=== PATIENT | male | born 1945 | race Caucasian/White ===

== ENCOUNTER 2016-11-27 06:49 | Emergency (ER) | payer MEDICARE, OTHER ==
[2016-11-27] MEDS ORDERED: Ketorolac INJ* 30 MG/ML 1 ML VIAL IV PUSH ONE (07:50)
--- NOTE | 2016-11-27 08:17 | RAD ---
CLINICAL HISTORY: Left flank pain COMPARISON: None TECHNIQUE: Multiple contiguous axial CT scans were obtained of the abdomen and pelvis, without intravenous contrast enhancement. Coronal and sagittal multiplanar reformations are submitted for review. Oral contrast was not administered. FINDINGS: The study is limited by the lack of intravenous contrast. This limits evaluation of the solid organs and vasculature. LUNG BASES: The lung bases are clear. LIVER: The liver is diffusely low in attenuation compared to the spleen. There are no focal hepatic parenchymal masses. The liver is enlarged measuring 20 cm in long axis. BILE DUCTS: There is no intrahepatic or extrahepatic biliary dilatation. GALLBLADDER: Multiple gallstones are noted. There is no pericholecystic inflammatory change. PANCREAS: The pancreas is normal, without mass or ductal dilatation. SPLEEN: Normal in size and appearance. UPPER GI TRACT: Evaluation of the gastrointestinal tract is limited by incomplete gastric distention. The upper GI tract is unremarkable. SMALL BOWEL AND MESENTERY: The small bowel is normal in contour, course, and caliber. There is no obstruction or dilatation. COLON: There are multiple diverticula of the sigmoid colon. There is no pericolonic inflammatory change. There is a tubular, vermiform, hollow viscus that is blind ending, and originates from the cecum, consistent with a normal appendix. There is no periappendiceal inflammatory change. This is best seen on axial images 116 through 121 ADRENALS: Normal bilaterally. KIDNEYS: There is a simple cyst of the left kidney measuring 6 cm. There is no hydronephrosis or nephrolithiasis BLADDER: The bladder is smooth in contour. PELVIC ORGANS: The prostate is mildly enlarged. The seminal vesicles are symmetric. AORTA: The aorta is normal. IVC: Unremarkable LYMPH NODES: There is no lymphadenopathy by size criteria. ABDOMINAL WALL: There is no evidence for abdominal wall hernia. There is inflammatory change in the subcutaneous fat superficial to the deep fascia along the right lower abdomen BONES AND SOFT TISSUES: Degenerative changes are noted along the spine OTHER: None IMPRESSION: 1. NO HYDRONEPHROSIS OR NEPHROLITHIASIS. 2. HEPATOMEGALY WITH FATTY INFILTRATION OF LIVER. 3. THERE IS INFLAMMATORY CHANGE OF THE SUBCUTANEOUS FAT ALONG THE RIGHT LOWER ABDOMEN. THE DIFFERENTIAL INCLUDES HEMATOMA VERSUS CELLULITIS. RECOMMEND CORRELATION WITH DIRECT VISUALIZATION
[2016-11-27 08:44] LABS: Hematocrit 39 % (42-52); Hemoglobin 13.2 g/dl (14.0-18.0); Mean Corpuscular HGB Conc 34 g/dl (31-36); Mean Corpuscular Hemoglobin 28 pg (27-31); Mean Corpuscular Volume 83 fL (80-94); Mean Platelet Volume 7 um3 (7.4-10.4); Red Blood Count 4.66 10^6/ul (4.0-5.4); Red Cell Distribution Width 13 % (10.5-15); White Blood Count 8.9 10^3/ul (3.5-10.8)
[2016-11-27 08:56] LABS: Troponin I 0.01 ng/mL (<0.04)
[2016-11-27 08:58] LABS: EGFR Non-African American 113.7 (>60)
[2016-11-27 09:47] LABS: BUN/Creatinine Ratio 17.5 (8-20); Calcium 9.4 mg/dL (8.6-10.3); Potassium 3.6 mmol/L (3.5-5.0)
[2016-11-27 09:48] LABS: Albumin 4.3 g/dL (3.2-5.2); C Reactive Protein 5.05 mg/L (< 5.00); EGFR African American 123.3 (>60); Globulin 2.3 g/dL (2-4); Total Bilirubin 0.4 mg/dL (0.2-1.0); Total Protein 6.6 g/dL (6.4-8.9)
[2016-11-27 10:18] VITALS: BP 145/65
--- NOTE | 2016-11-27 18:02 | ED ---
Siddharth Lezama Billy, scribed for Wilfredo Wells MD on 11/27/16 at 0741 . Complex/Multi-Sys Presentation - HPI Summary HPI Summary: Patient is a 71 year-old male coming to [facility] for evaluation of left-sided rib pain for the last 2 weeks. 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 The pain is worse when twisting his torso and with certain movements. Denies fevers, chills, nausea, vomiting, diarrhea, or chest pain. Denies hematuria or dysuria. - History Of Current Complaint Chief Complaint: EDAbdPain Time Seen by Provider: 11/27/16 07:15 Hx Obtained From: Patient Onset/Duration: Gradual Onset, Lasting Weeks Timing: Constant Severity Currently: Moderate Severity Initially: Moderate Location: Pain At: - left ribs Aggravating Factor(s): twisting, certain body movements Associated Signs And Symptoms: Negative: SOB, Chest Pain, Nausea, Vomiting, Diarrhea, Fever - Allergies/Home Medications Allergies/Adverse Reactions: Allergies Allergy/AdvReac Type Severity Reaction Status Date / Time Ramipril Allergy Coughing Verified 03/27/16 08:37 PMH/Surg Hx/FS Hx/Imm Hx Endocrine/Hematology History: Reports: Hx Diabetes - TYPE II- ORAL AND INSULIN MEDS, Hx Anemia - IRON LEVEL LOW CHRONIC Denies: Hx Thyroid Disease Cardiovascular History: Reports: Hx Hypertension - ON MEDICATION FOR Denies: Hx Pacemaker/ICD Respiratory History: Denies: Hx Asthma, Hx Chronic Obstructive Pulmonary Disease (COPD), Other Respiratory Problems/Disorders GI History: Denies: Hx Ulcer, Other GI Disorders Musculoskeletal History: Reports: Hx Arthritis - HIPS, IN LEFT CENTER FINGER Sensory History: Reports: Hx Cataracts - JUST STARTING TO GET, Hx Contacts or Glasses - READING Denies: Hx Hearing Aid Opthamlomology History: Reports: Hx Cataracts - JUST STARTING TO GET, Hx Contacts or Glasses - READING Psychiatric History: Denies: Hx Panic Disorder - Surgical History Surgery Procedure, Year, and Place: LT Knee SURGERY-[facility]; right and left shoulder surgery-[facility]; hernia repair-[facility]; RIGHT CTR,(carpal tunnel release) , [facility]; LEFT CARPEL TUNNEL RELEASE, [facility] Hx Anesthesia Reactions: No Infectious Disease History: No Infectious Disease History: Reports: Hx Shingles Denies: Hx Clostridium Difficile, Hx Hepatitis, Hx Human Immunodeficiency Virus (HIV), Hx of Known/Suspected MRSA, Hx Tuberculosis, Traveled Outside the [place] in Last 30 Days - Family History Family History: No family history of malignant hyperthermia or anesthesia reaction. - Social History Alcohol Use: Daily Alcohol Amount: 1 A DAY Substance Use Type: Reports: None Smoking Status (MU): Former Smoker Review of Systems Negative: Fever, Chills Negative: Chest Pain Negative: Shortness Of Breath Negative: Vomiting, Diarrhea, Nausea Negative: dysuria Musculoskeletal: Other - pain to the left trunk All Other Systems Reviewed And Are Negative: Yes Physical Exam - Summary Physical Exam Summary: VITAL SIGNS: Reviewed. GENERAL: Patient is a well-developed and nourished male who is lying comfortable in the stretcher. Patient is not in any acute respiratory distress. HEAD AND FACE: No signs of trauma. No ecchymosis, hematomas or skull depressions. No sinus tenderness. EYES: PERRLA, EOMI x 2, No injected conjunctiva, no nystagmus. EARS: Hearing grossly intact. Ear canals and tympanic membranes are within normal limits. MOUTH: Oropharynx within normal limits. NECK: Supple, trachea is midline, no adenopathy, no JVD, no carotid bruit, no c- spine tenderness, neck with full ROM. CHEST: Symmetric. There is positive tenderness to the left rib cage area and left flank. LUNGS: Clear to auscultation bilaterally. No wheezing or crackles. CVS: Regular rate and rhythm, S1 and S2 present, no murmurs or gallops appreciated. ABDOMEN: Soft, obese, non-tender. No signs of distention. No rebound no guarding , and no masses palpated. Bowel sounds are normal. EXTREMITIES: FROM in all major joints, no edema, no cyanosis or clubbing. NEURO: Alert and oriented x 3. No acute neurological deficits. Speech is normal and follows commands. SKIN: Dry and warm Triage Information Reviewed: Yes Vital Signs On Initial Exam: Initial Vitals Temp Pulse Resp BP Pulse Ox 97.8 F 61 18 150/79 97 11/27/16 06:59 11/27/16 06:59 11/27/16 06:59 11/27/16 06:59 11/27/16 06:59 Vital Signs Reviewed: Yes Diagnostics - Vital Signs Vital Signs Temp Pulse Resp BP Pulse Ox 11/27/16 06:59 97.8 F 61 18 150/79 97 - Laboratory Lab Results: Lab Results 11/27/16 11/27/16 11/27/16 Range/Units 08:20 08:20 08:20 WBC 8.9 (3.5-10.8) 10^3/ul RBC 4.66 (4.0-5.4) 10^6/ul Hgb 13.2 L (14.0-18.0) g/dl Hct 39 L (42-52) % MCV 83 (80-94) fL MCH 28 (27-31) pg MCHC 34 (31-36) g/dl RDW 13 (10.5-15) % Plt Count 304 (150-450) 10^3/ul MPV 7 L (7.4-10.4) um3 Neut % (Auto) 55.5 (38-83) % Lymph % (Auto) 33.1 (25-47) % [place] % (Auto) 8.1 (1-9) % Eos % (Auto) 2.9 (0-6) % Baso % (Auto) 0.4 (0-2) % Absolute Neuts (auto) 4.9 (1.5-7.7) 10^3/ul Absolute Lymphs (auto) 2.9 (1.0-4.8) 10^3/ul Absolute Monos (auto) 0.7 (0-0.8) 10^3/ul Absolute Eos (auto) 0.3 (0-0.6) 10^3/ul Absolute Basos (auto) 0 (0-0.2) 10^3/ul Absolute Nucleated RBC 0.01 10^3/ul Nucleated RBC % 0.1 Sodium 135 (133-145) mmol/L Potassium 3.6 (3.5-5.0) mmol/L Chloride 96 L (101-111) mmol/L Carbon Dioxide 31 (22-32) mmol/L Anion Gap 8 (2-11) mmol/L BUN 14 (6-24) mg/dL Creatinine 0.80 (0.67-1.17) mg/dL Est GFR ( Amer) 123.3 (>60) Est GFR (Non-Af Amer) 113.7 (>60) BUN/Creatinine Ratio 17.5 (8-20) Glucose 139 H (70-100) mg/dL Lactic Acid 1.7 (0.5-2.0) mmol/L Calcium 9.4 (8.6-10.3) mg/dL Total Bilirubin 0.40 (0.2-1.0) mg/dL AST 21 (13-39) U/L ALT 28 (7-52) U/L Alkaline Phosphatase 52 (34-104) U/L Troponin I 0.01 (<0.04) ng/mL C-Reactive Protein 5.05 H (< 5.00) mg/L Total Protein 6.6 (6.4-8.9) g/dL Albumin 4.3 (3.2-5.2) g/dL Globulin 2.3 (2-4) g/dL Albumin/Globulin Ratio 1.9 (1-3) Amylase 20 L (29-103) U/L Lipase 10 L (11.0-82.0) U/L Result Diagrams: 11/27/16 08:20 11/27/16 08:20 Lab Statement: Any lab studies that have been ordered have been reviewed, and results considered in the medical decision making process. - CT abd/pel w/o contrast CT Interpretation Completed By: Radiologist - 1. NO HYDRONEPHROSIS OR NEPHROLITHIASIS. 2. HEPATOMEGALY WITH FATTY INFILTRATION OF LIVER. 3. THERE IS INFLAMMATORY CHANGE OF THE SUBCUTANEOUS FAT ALONG THE RIGHT LOWER ABDOMEN.THE DIFFERENTIAL INCLUDES HEMATOMA VERSUS CELLULITIS. RECOMMEND CORRELATION WITH DIRECT VISUALIZATION - EKG 0826 EKG Interpretation: sinus bradycardia 53 bpm, no STEMI Re-Evaluation - Re-Evaluation First Eval Re-Evaluation Time: 10:05 Comment: Labs and imaging reviewed. Complex Multi-Symp Course/Dx Assessment/Plan: Patient is a 71 year-old male coming to [facility] for evaluation of left-sided rib pain for the last 2 weeks. 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 The pain is worse when twisting his torso and with certain movements. Denies fevers, chills, nausea, vomiting, diarrhea, or chest pain. Denies hematuria or dysuria. Test results WNL except for a slight anemia. Glucose of 139 and CRP of 5.05. I decided to order a CT of the abd/pel without contrast to rule-out kidney stone since he has some left flank pain and rib cage pain. The results show findings as read by the radiologist: 1. No hydronephrosis or nephrolithiasis. 2. Hepatomegaly with fatty infiltration of liver. 3. There is inflammatory change of the subcutaneous fat along the right lower abdomen. The differential includes hematoma versus cellulitis. Recommend correlation with direct visualization. The patient was given Toradol with improvement. He reports that the pain has resolved. I offered the patient a rib-cage x-ray, which he declined. He declined that he feels much better now. The patient is ambulating with no complaints and will therefore be discharged home to follow up with PCP. He was instructed to take ibuprofen for pain management. He understands and agrees. I discussed all the findings and test results with the patient. Patient was instructed to return to the emergency room immediately if any of the symptoms return or worsens. Plan of care was discussed with the patient and understands and agrees. All questions were answered at patient satisfaction. There were no further complaints or concerns. Lung exam before discharge: CTA B/L. Good air exchange. No wheezing or crackles heard. CVS: S1 and S2 present. No murmurs appreciated. Patient is alert and oriented x 3. Patient is hemodynamically stable. Patient will be discharged home with follow up PCP in the next 2-3 days - Diagnoses Differential Diagnoses/HQI/PQRI: Urinary Tract Infection, Other - kidney stones Provider Diagnoses: Left flank pain, left ribcage pain Discharge - Discharge Plan Condition: Stable Disposition: HOME Patient Education Materials: Flank Pain (ED), Musculoskeletal Pain (ED) Referrals: Jim Patten MD [Primary Care Provider] - Additional Instructions: TAKE IBUPROFEN NEEDED FOR PAIN MANAGEMENT. The documentation as recorded by the Siddharth lay Billy accurately reflects the service I personally performed and the decisions made by me, Wilfredo Wells MD.
== END 2016-11-27 10:18 | disposition home or self-care (01) ==
LOC: ED 06:49
DX: R07.89 Other chest pain (principal); R10.84 Generalized abdominal pain
CPT/HCPCS: 36415; 74176; 80053; 82150; 83605; 83690; 84484; 85025; 86140; 93005; 96374; 99283; J1885

== ENCOUNTER 2021-07-12 13:26 | Inpatient (IN) ==
[2021-07-12] MEDS ORDERED: NS 0.9% 1000 ml BAG 1,000 ML IV ONE (13:28)
[2021-07-12] MEDS ORDERED: Labetalol IV 5 MG/ML 20 ml VIAL ONE (13:35)
[2021-07-12] MEDS ORDERED: Alteplase (100 mg Vial) 100 mg VIAL IV ONE ×2 (13:39)
[2021-07-12] MEDS ORDERED: Alteplase (100 mg Vial) 100 mg VIAL ONE (13:40)
[2021-07-12] MEDS ORDERED: Iodixanol (CONTRAST) 320 MG/ML 100 ML SDV IV ONE (13:45)
[2021-07-12 13:46] LABS: ABS Basophils 0.1 10^3/ul (0-0.2); ABS Eosinophils 0.1 10^3/ul (0-0.6); ABS Lymphocytes 3.4 10^3/ul (1.0-4.8); ABS Monocytes 0.8 10^3/ul (0-0.8); ABS Neutrophils 6.1 10^3/ul (1.5-7.7); Hematocrit 42 % (42-52); Hemoglobin 14.1 g/dL (14.0-18.0); Lymphocyte % 32.5 %; Mean Corpuscular HGB Conc 34 g/dL (31-36); Mean Corpuscular Hemoglobin 29 pg (27-31); Mean Corpuscular Volume 86 fL (80-94); Mean Platelet Volume 6.8 fL (7.4-10.4); Platelet Count 294 10^3/uL (150-450); Red Blood Count 4.81 10^6 /uL (4.18-5.48); Red Cell Distribution Width 13 % (10-15); White Blood Count 10.5 10^3/uL (3.5-10.8)
[2021-07-12 13:56] LABS: Activated Partial Thrombo Time 27.8 seconds (26.0-38.0); INR 1.03 (0.86-1.15)
[2021-07-12 14:05] LABS: Albumin 4.5 g/dL (3.2-5.2); Albumin/Globulin Ratio 1.6 (1-3); Calcium 9.6 mg/dL (8.6-10.3); Globulin 2.8 g/dL (2-4); HDL Cholesterol 37.5 mg/dL; Potassium 3.2 mmol/L (3.5-5.0); Total Bilirubin 0.5 mg/dL (0.2-1.0); Total Protein 7.3 g/dL (6.4-8.9); eGFR CKD-EPI 96.5 (>60)
[2021-07-12] MEDS ORDERED: Potassium Chlor 20 meq TAB.ER PO ONE (14:25)
[2021-07-12] MEDS ORDERED: Dextrose 50% Syringe 50 ml 25 GM/50 ML SYRINGE IV PUSH PRN (16:42)
[2021-07-12] MEDS ORDERED: NS 0.9% 1000 ml BAG 1,000 ML IV SCH (19:30)
[2021-07-13] MEDS: NS 0.9% 1000 ml BAG 1,000 ML IV SCH ×2 (03:42→10:23)
[2021-07-13 05:33] LABS: Hematocrit 34 % (42-52); Hemoglobin 11.4 g/dL (14.0-18.0); Mean Corpuscular HGB Conc 34 g/dL (31-36); Mean Corpuscular Hemoglobin 29 pg (27-31); Mean Corpuscular Volume 87 fL (80-94); Mean Platelet Volume 6.9 fL (7.4-10.4); Platelet Count 240 10^3/uL (150-450); Red Blood Count 3.88 10^6 /uL (4.18-5.48); Red Cell Distribution Width 13 % (10-15); White Blood Count 8.1 10^3/uL (3.5-10.8)
[2021-07-13 05:43] LABS: Calcium 6.7 mg/dL (8.6-10.3); Magnesium 1.2 mg/dL (1.9-2.7); Phosphorus 2.6 mg/dL (2.5-5.0); eGFR CKD-EPI 107.7 (>60)
[2021-07-13 06:28] LABS: Potassium 2.4 mmol/L (3.5-5.0)
[2021-07-13] MEDS ORDERED: CALCIUM GLUCONATE 1GM/50ML NS 1 GM/50 ML BAG IV ONE (06:32)
[2021-07-13] MEDS ORDERED: Potassium Chlor 20 meq TAB.ER PO ONE ×5 (06:32→16:47)
[2021-07-13] MEDS ORDERED: Magnesium Sulfate IV 1GM/100ML 1 GM/100 ML BAG IV ONE (06:32)
[2021-07-13] MEDS ORDERED: Magnesium Sulf 4 GM/100 ML IV 4,000 MG/100 ML BAG IVPB ONE (07:07)
[2021-07-13] MEDS ORDERED: Calcium Citrate 200 mg TAB PO ONE (07:12)
[2021-07-13] MEDS ORDERED: Magnesium Sulfate IV 3 GM in NS 0.9% 100 ml BAG 100 ML IVPB ONE (07:30)
[2021-07-13] MEDS: KCL 20 MEQ/100 ML IVPREMIX 20 MEQ/100 ML BAG IV SCH ×3 (07:56→12:06)
[2021-07-13] MEDS ORDERED: Magnesium Sulfate 4 GM IV IVPB ONE (08:00)
[2021-07-13 16:38] LABS: Calcium 8.8 mg/dL (8.6-10.3); Magnesium 2.1 mg/dL (1.9-2.7); Potassium 3.7 mmol/L (3.5-5.0)
[2021-07-13] MEDS ORDERED: Insulin GLARGINE 100 un/ml 10 ml VIAL SUBCUT SCH (21:00)
[2021-07-14 05:29] LABS: Hematocrit 41 % (42-52); Hemoglobin 13.9 g/dL (14.0-18.0); Mean Corpuscular HGB Conc 34 g/dL (31-36); Mean Corpuscular Hemoglobin 29 pg (27-31); Mean Corpuscular Volume 85 fL (80-94); Mean Platelet Volume 6.5 fL (7.4-10.4); Platelet Count 274 10^3/uL (150-450); Red Cell Distribution Width 13 % (10-15); White Blood Count 12.5 10^3/uL (3.5-10.8)
[2021-07-14 05:44] LABS: Calcium 8.8 mg/dL (8.6-10.3); Magnesium 1.7 mg/dL (1.9-2.7); Phosphorus 2.9 mg/dL (2.5-5.0); Potassium 3.4 mmol/L (3.5-5.0)
[2021-07-14] MEDS ORDERED: Potassium Chlor 20 meq TAB.ER PO ONE ×2 (07:37→07:47)
[2021-07-14] MEDS ORDERED: Magnesium Sulfate IV 3 GM in NS 0.9% 100 ml BAG 100 ML IVPB ONE (07:38)
[2021-07-14] MEDS ORDERED: Insulin GLARGINE 100 un/ml 10 ml VIAL SUBCUT ONE (11:43)
[2021-07-14] MEDS: Insulin GLARGINE 100 un/ml 10 ml VIAL SUBCUT SCH (20:43)
[2021-07-15 08:26] LABS: Hematocrit 44 % (42-52); Hemoglobin 14.7 g/dL (14.0-18.0); Mean Corpuscular HGB Conc 34 g/dL (31-36); Mean Corpuscular Hemoglobin 29 pg (27-31); Mean Corpuscular Volume 86 fL (80-94); Mean Platelet Volume 6.5 fL (7.4-10.4); Platelet Count 298 10^3/uL (150-450); Red Blood Count 5.08 10^6 /uL (4.18-5.48); Red Cell Distribution Width 13 % (10-15); White Blood Count 10.8 10^3/uL (3.5-10.8)
[2021-07-15 08:41] LABS: Calcium 9.3 mg/dL (8.6-10.3); Phosphorus 2.8 mg/dL (2.5-5.0); Potassium 3.2 mmol/L (3.5-5.0); eGFR CKD-EPI 93.2 (>60)
[2021-07-15] MEDS ORDERED: Potassium Chlor 20 meq TAB.ER PO ONE ×2 (10:27→14:00)
[2021-07-15] MEDS ORDERED: Dextrose 50% Syringe 50 ml 25 GM/50 ML SYRINGE IV PUSH PRN (10:31)
[2021-07-15 11:26] LABS: TSH Ultra Thyroid Stim Horm 3.82 mcIU/mL (0.34-5.60)
[2021-07-15] MEDS: Insulin GLARGINE 100 un/ml 10 ml VIAL SUBCUT SCH (20:59)
[2021-07-15 21:43] LABS: Calcium 9.2 mg/dL (8.6-10.3); Potassium 3.6 mmol/L (3.5-5.0); eGFR CKD-EPI 94.7 (>60)
[2021-07-16 07:12] LABS: Hematocrit 39 % (42-52); Hemoglobin 13.2 g/dL (14.0-18.0); Mean Corpuscular HGB Conc 34 g/dL (31-36); Mean Corpuscular Hemoglobin 29 pg (27-31); Mean Corpuscular Volume 86 fL (80-94); Mean Platelet Volume 6.6 fL (7.4-10.4); Platelet Count 281 10^3/uL (150-450); Red Cell Distribution Width 13 % (10-15); White Blood Count 9.6 10^3/uL (3.5-10.8)
[2021-07-16 07:31] LABS: Calcium 9.1 mg/dL (8.6-10.3); Potassium 3.5 mmol/L (3.5-5.0); eGFR CKD-EPI 94.3 (>60)
[2021-07-16 08:32] LABS: Magnesium 1.7 mg/dL (1.9-2.7)
[2021-07-16] MEDS ORDERED: Magnesium Sulfate 2 gm BAG 2 GM/50 ML BAG IVPB ONE (08:51)
[2021-07-16] MEDS: Insulin GLARGINE 100 un/ml 10 ml VIAL SUBCUT SCH (20:38)
[2021-07-17 06:18] LABS: ABS Eosinophils 0.2 10^3/ul (0-0.6); ABS Lymphocytes 2.5 10^3/ul (1.0-4.8); ABS Monocytes 0.9 10^3/ul (0-0.8); ABS Neutrophils 5.4 10^3/ul (1.5-7.7); Hematocrit 39 % (42-52); Hemoglobin 13.6 g/dL (14.0-18.0); Lymphocyte % 27.8 %; Mean Corpuscular HGB Conc 34 g/dL (31-36); Mean Corpuscular Hemoglobin 29 pg (27-31); Mean Corpuscular Volume 85 fL (80-94); Mean Platelet Volume 6.6 fL (7.4-10.4); Platelet Count 296 10^3/uL (150-450); Red Blood Count 4.62 10^6 /uL (4.18-5.48); Red Cell Distribution Width 13 % (10-15)
[2021-07-17 06:31] LABS: Calcium 9.2 mg/dL (8.6-10.3); Magnesium 1.8 mg/dL (1.9-2.7); Potassium 3.7 mmol/L (3.5-5.0); eGFR CKD-EPI 93.6 (>60)
[2021-07-17] MEDS ORDERED: Magnesium Sulfate 2 gm BAG 2 GM/50 ML BAG IVPB ONE (07:40)
[2021-07-17] MEDS: Potassium Chlor 20 meq TAB.ER PO SCH (12:32)
[2021-07-17] MEDS: Insulin GLARGINE 100 un/ml 10 ml VIAL SUBCUT SCH (21:13)
[2021-07-18 07:52] LABS: ABS Eosinophils 0.1 10^3/ul (0-0.6); ABS Lymphocytes 2.8 10^3/ul (1.0-4.8); ABS Monocytes 0.7 10^3/ul (0-0.8); Eosinophil % 1.4 %; Hematocrit 40 % (42-52); Hemoglobin 13.9 g/dL (14.0-18.0); Lymphocyte % 31.9 %; Mean Corpuscular HGB Conc 35 g/dL (31-36); Mean Corpuscular Hemoglobin 30 pg (27-31); Mean Corpuscular Volume 86 fL (80-94); Mean Platelet Volume 6.8 fL (7.4-10.4); Platelet Count 317 10^3/uL (150-450); Red Blood Count 4.71 10^6 /uL (4.18-5.48); Red Cell Distribution Width 13 % (10-15); White Blood Count 8.6 10^3/uL (3.5-10.8)
[2021-07-18] MEDS: Potassium Chlor 20 meq TAB.ER PO SCH (07:54)
[2021-07-18 08:39] LABS: Calcium 9.3 mg/dL (8.6-10.3); Magnesium 1.9 mg/dL (1.9-2.7); Potassium 3.7 mmol/L (3.5-5.0)
[2021-07-18 08:44] LABS: eGFR CKD-EPI 98.4 (>60)
[2021-07-18] MEDS: Insulin GLARGINE 100 un/ml 10 ml VIAL SUBCUT SCH (20:55)
[2021-07-19] MEDS: Potassium Chlor 20 meq TAB.ER PO SCH (08:08)
[2021-07-19 11:18] VITALS: BP 145/74
== END 2021-07-19 16:30 | disposition home or self-care (01) | DRG 61 ==
LOC: ED 13:26 → SUATTDRO 15:53 → EDHOLD 15:53 → ICU 18:04 → MEDTELE 07-14 12:24
PROVIDERS: ADMIT Surgery Surgical Critical Care; ATTEND Internal Medicine

== ENCOUNTER 2021-08-16 14:21 | Inpatient (IN) ==
[2021-08-16] MEDS ORDERED: NS 0.9% 1000 ml BAG 1,000 ML IV ONE (14:23)
[2021-08-16] MEDS ORDERED: Iodixanol (CONTRAST) 320 MG/ML 100 ML SDV IV ONE (14:35)
[2021-08-16 14:50] LABS: ABS Eosinophils 0.2 10^3/ul (0-0.6); ABS Lymphocytes 3.2 10^3/ul (1.0-4.8); ABS Monocytes 0.8 10^3/ul (0-0.8); Eosinophil % 1.5 %; Hematocrit 41 % (42-52); Hemoglobin 13.7 g/dL (14.0-18.0); Lymphocyte % 30.9 %; Mean Corpuscular HGB Conc 34 g/dL (31-36); Mean Corpuscular Hemoglobin 28 pg (27-31); Mean Corpuscular Volume 85 fL (80-94); Mean Platelet Volume 6.8 fL (7.4-10.4); Platelet Count 328 10^3/uL (150-450); Red Blood Count 4.83 10^6 /uL (4.18-5.48); Red Cell Distribution Width 12 % (10-15); White Blood Count 10.2 10^3/uL (3.5-10.8)
[2021-08-16 14:58] LABS: Activated Partial Thrombo Time 26.2 seconds (26.0-38.0); INR 1.03 (0.86-1.15)
[2021-08-16 15:09] LABS: Albumin 4.4 g/dL (3.2-5.2); Albumin/Globulin Ratio 1.5 (1-3); Calcium 9.6 mg/dL (8.6-10.3); Globulin 2.9 g/dL (2-4); HDL Cholesterol 32.1 mg/dL; Potassium 3.6 mmol/L (3.5-5.0); Total Bilirubin 0.5 mg/dL (0.2-1.0); Total Protein 7.3 g/dL (6.4-8.9); eGFR CKD-EPI 92.9 (>60)
[2021-08-16] MEDS ORDERED: Dextrose 50% Syringe 50 ml 25 GM/50 ML SYRINGE IV PUSH PRN (15:27)
[2021-08-16 15:49] LABS: Magnesium 1.6 mg/dL (1.9-2.7)
[2021-08-17] MEDS ORDERED: Lactated Ringers 1000 ml BAG 1,000 ML IV SCH (01:00)
[2021-08-17] MEDS: Insulin GLARGINE 100 un/ml 10 ml VIAL SUBCUT SCH (08:43)
[2021-08-17] MEDS: Potassium Chlor 20 meq TAB.ER PO SCH (08:45)
[2021-08-17] MEDS ORDERED: Aspirin EC 81 mg TAB.EC (enteric coated) PO SCH (09:00)
[2021-08-17] MEDS ORDERED: Pravastatin 20 mg TAB (NF) PO SCH (09:00)
[2021-08-18] MEDS: Potassium Chlor 20 meq TAB.ER PO SCH (08:48)
[2021-08-18] MEDS: Insulin GLARGINE 100 un/ml 10 ml VIAL SUBCUT SCH (08:49)
[2021-08-18 14:16] VITALS: BP 140/82
== END 2021-08-18 13:55 | disposition home or self-care (01) | DRG 65 ==
LOC: EDHOLD 14:21 → ED 14:21 → MEDTELE 17:58
PROVIDERS: ADMIT Student in an Organized Health Care Education/Training Program; ATTEND Student in an Organized Health Care Education/Training Program

== ENCOUNTER 2024-06-03 09:50 | Observation (INO) ==
[2024-06-03 10:16] LABS: ABS Lymphocytes 2.2 10^3/uL (1.0-4.8); ABS Monocytes 0.8 10^3/uL (0.0-1.1); ABS Neutrophils 7.3 10^3/uL (1.5-7.6); ABS Nucleated RBC 0.01 10^3/ul; Eosinophil % 0.4 %; Hematocrit 43.6 % (38-53); Lymphocyte % 21.2 %; Mean Corpuscular Hgb Conc 34.3 g/dL (31-36); Mean Corpuscular Volume 84.5 fL (80-97); Mean Platelet Volume 6.6 fL (7.5-11.2); Nucleated Red Blood Cells % 0.1 %/100WBC (0.0-0.8); Platelet Count 379 10^3/uL (150-450); Red Blood Count 5.16 10^6/uL (4.06-5.63); Red Cell Distribution Width 13.9 % (12-17); White Blood Count 10.3 10^3/uL (3.6-10.2)
[2024-06-03 10:27] LABS: INR 0.97 (0.85-1.14)
[2024-06-03 11:12] LABS: Albumin 4.5 g/dL (3.2-5.2); Albumin/Globulin Ratio 1.8 (1-3); Calcium 9.7 mg/dL (8.6-10.3); Creatinine, Serum 0.88 mg/dL (0.67-1.17); Globulin 2.5 g/dL (2-4); Potassium 4.8 mmol/L (3.5-5.0); Total Bilirubin 0.4 mg/dL (0.2-1.0); eGFR CKD-EPI 89.1 (>60)
[2024-06-03 12:06] LABS: TSH Ultra Thyroid Stim Horm 3.16 mcIU/mL (0.34-5.60)
[2024-06-03 12:07] LABS: High Sensitivity Troponin 1 Hr 6 pg/mL (<20)
[2024-06-03 12:10] LABS: Free T4 0.98 ng/dL (0.61-1.12)
[2024-06-03] MEDS ORDERED: Dextrose 50% Syringe 50 ml 25 GM/50 ML SYRINGE IV PUSH PRN (16:46)
[2024-06-03 18:29] LABS: Osmolality Serum 280 mOsm/kg (275-295)
[2024-06-03] MEDS: Insulin GLARGINE 100 un/ml 10 ml VIAL SUBCUT SCH (21:37)
[2024-06-04 01:47] LABS: Urine Osmo 483 mOsm/kg (150-1150)
[2024-06-04] MEDS: Dextrose 50% Syringe 50 ml 25 GM/50 ML SYRINGE IV PUSH PRN (04:52)
[2024-06-04 06:17] LABS: ABS Eosinophils 0.2 10^3/uL (0.0-0.5); ABS Lymphocytes 2.5 10^3/uL (1.0-4.8); ABS Monocytes 0.8 10^3/uL (0.0-1.1); ABS Neutrophils 6.3 10^3/uL (1.5-7.6); Eosinophil % 1.9 %; Hematocrit 40.5 % (38-53); Hemoglobin 13.8 g/dL (13.2-16.3); Lymphocyte % 25.2 %; Mean Corpuscular Hemoglobin 29.1 pg (27-33); Mean Corpuscular Hgb Conc 34.1 g/dL (31-36); Mean Corpuscular Volume 85.1 fL (80-97); Mean Platelet Volume 6.7 fL (7.5-11.2); Platelet Count 331 10^3/uL (150-450); Red Blood Count 4.75 10^6/uL (4.06-5.63); Red Cell Distribution Width 13.7 % (12-17); White Blood Count 9.8 10^3/uL (3.6-10.2)
[2024-06-04 06:40] LABS: Calcium 8.8 mg/dL (8.6-10.3); Creatinine, Serum 0.86 mg/dL (0.67-1.17); Potassium 4.2 mmol/L (3.5-5.0); eGFR CKD-EPI 89.7 (>60)
[2024-06-04] MEDS: Aspirin EC 81 mg TAB.EC (enteric coated) PO SCH (10:01)
[2024-06-04] MEDS: CMCS:Budesonide 3 mg CAP (NF) PO SCH (10:25)
[2024-06-04 13:44] VITALS: BP 111/68
[2024-06-04] MEDS ORDERED: CMCS: Budesonide 3 mg CAP (NF) PO SCH (21:00)
[2024-06-04] MEDS ORDERED: Enoxaparin 40 MG/0.4 ML SYR SUBCUT SCH (21:00)
== END 2024-06-04 17:05 | disposition home or self-care (01) ==
LOC: EDHOLD 09:50 → ED 09:50 → MEDTELE 19:30
PROVIDERS: ADMIT Internal Medicine; ATTEND Student in an Organized Health Care Education/Training Program